=== PATIENT | female | born 1935 | race Caucasian/White ===

== ENCOUNTER 2017-04-28 12:28 | Inpatient (IN) | payer MEDICARE, OTHER ==
[~2017-04-28] VITALS: Ht 170.1 cm; Wt 99.5 kg
--- NOTE | ~2017-04-28 | CON ---
[place], [place] REPORT OF CONSULTATION [id number] #: [id number] ROOM: 509 DOCTOR: CARMEN HATFIELD MD BIRTHDATE: [birth year] DOS: 04/29/2017 HISTORY OF PRESENT ILLNESS: This is a 81-year-old -Hung[place] woman with history of morbid obesity, essential hypertension, COPD and sciatica. She also has depression and anxiety. She smoked for a total of 60 years, but no longer smokes, has never used alcoholic beverages. She also has chronic atrial fibrillation, which was diagnosed about 2 years ago or so. She has never had a stroke, heart attack, heart failure, cancer or kidney problems. She came to the Emergency Department because of increasing shortness of breath over several days prior to this admission. She does not have any chest pain or heaviness, had no palpitations. She does have a cough, which is not productive of any significant moderate sputum. She has not had any swelling of the legs and no orthopnea has been reported. HOME MEDICATIONS: Include Xarelto 20 mg daily, sertraline 25 mg daily, simvastatin 40 daily, metoprolol/Toprol XL 25 mg daily, lisinopril 10 mg daily, hydrochlorothiazide 12.5 mg daily, furosemide 20 mg once a week p.r.n., vitamin D2 and BuSpar. PHYSICAL EXAMINATION: GENERAL: This is a patient who is moderately obese. She is alert. She has oxygen on and is not particularly tachypneic. There is no anemia, thyromegaly. There is no finger clubbing. VITAL SIGNS: Pulse is regular at 72 beats per minute, blood pressure 148/92. NECK: JVP is normal. No carotid bruits are present. HEART: There is a grade 1/6 early peaking systolic murmur over the aortic area and there is no edema at all in the lower extremities. She has mild varicosities. RESPIRATORY: Percussion note is normal. Auscultation revealed diminished breath sounds with crackles on both sides, more so on the left side. ABDOMEN: Supple and nontender. DIAGNOSTIC STUDIES: First ECG on admission done April 28 at 1300 hours showed atrial fibrillation with a ventricular rate of 65 beats per minute and an intraventricular conduction defect with QRS [address] segment depression, T-wave abnormality in 1 and aVL and normal ST segments in chest leads with flat T waves. There was another ECG done about 4 hours later demonstrated a controlled ventricular rate in the presence of atrial fibrillation and [address] segment depression in V4-V6 and 1 and aVL with T-wave inversion and mild ST segment depression V2 and V3. This seemed to suggest underlying myocardial ischemia. Troponin I was 0.054, which is slightly above normal. The second reading was 0.047. Renal function is fine. IMPRESSION: 1. This patient with many risk factors for coronary artery disease, has dyspnea that developed a few days before admission. I do not see any obvious bronchospasm. I think underlying reason may be myocardial ischemia. ECG is [place], [place] REPORT OF CONSULTATION NAME: HARLEEN LILLY UNIT #: [id number] ROOM: 509 DOCTOR: CARMEN HATFIELD MD BIRTHDATE: [birth year] significantly abnormal with acute changes. 2. Atrial fibrillation with controlled ventricular rate. This is chronic and she is anticoagulated. 3. Chronic obstructive pulmonary disease. RECOMMENDATIONS: I am in favor of doing a diagnostic heart cath to look for significant coronary artery disease, but she is somewhat reluctant to have this done. After we explained risks and the benefits to her, she is agreeable to have a Lexiscan Cardiolite study, which will be scheduled for tomorrow morning and Dr. Khanna will do that on my behalf. If that test demonstrates moderate to large ischemic burden, I think diagnostic heart cath and selective coronary angiogram will be recommended to her. I thank you for this consult. CARMEN HATFIELD MD CM:CONSTR:REPORT OF CONSULTATION 1233 04/29/17 7890 interface
--- NOTE | ~2017-04-28 | EKG ---
[place], [place] ELECTROCARDIOGRAM REPORT NAME: HARLEEN LILLY UNIT #: [id number] ROOM: 509 DOCTOR: CARMEN HATFIELD MD BIRTHDATE: [birth year] DOS: 04/28/2017 TIME: 1300 hours. 1. Atrial fibrillation with a ventricular rate of 65 beats per minute. 2. Intraventricular conduction defect is present with QRS of [address] segment depression in 1 and aVL, probably due to conduction abnormality or lateral wall ischemia. 4. No previous tracing is available for comparison. CARMEN HATFIELD MD CM:EKGRPT:ELECTROCARDIOGRAM REPORT 1205 1336 CARMEN HATFIELD MD
--- NOTE | ~2017-04-28 | EKG ---
[place], [place] ELECTROCARDIOGRAM REPORT NAME: HARLEEN LILLY UNIT #: [id number] ROOM: 509 DOCTOR: CARMEN HATFIELD MD BIRTHDATE: [birth year] DOS: 04/28/2017 TIME: 1654 hours. 1. Atrial fibrillation with ventricular rate of 65 beats per minute. 2. Intraventricular conduction defect. 3. A 1-[address] segment depression in I, aVL and V4 to ____ with T-wave inversion is suggestive of anterolateral wall ischemia. 4. When compared with an ECG done at 1300 hours of the same day, ST-T wave changes in chest leads are now quite prominent. CARMEN HATFIELD MD CM:EKGRPT:ELECTROCARDIOGRAM REPORT 1205 1339 CARMEN HATFIELD MD
--- NOTE | ~2017-04-28 | ST ---
[place], [place] EXERCISE STRESS TEST REPORT NAME: HARLEEN LILLY UNIT #: [id number] ROOM: 509 DOCTOR: GERI HOSKINS MD BIRTHDATE: [birth year] DOS: 04/30/2017 Lexiscan portion of Lexiscan Cardiolite. Baseline cardiogram sinus rhythm with atrial fibrillation, controlled ventricular response with Lexiscan, no new EKG changes. Blood pressure and heart rate response was normal. Nuclear images will be reported separately. GERI HOSKINS MD CM:STRESS:EXERCISE STRESS TEST REPORT [id number] GERI HOSKINS MD
[~2017-04-28 12:28] MED LIST: HYDROCODONE BIT1 T11 PO; K-Dur 20MEQ20 MEQ PO; LASIX20 MG PO; LASIX40 MG PO; LISINOPRIL-HYDR1 TA1 PO; METFORMIN HCL500 MG PO; NORVASC5 MG PO; SIMVASTATIN40 MG PO; TOPROL XL25 MG PO; VALSARTAN160 MG PO; XARE20MG PO; ZOLOFT25 MG PO
[2017-04-28 12:56] LABS: BASO % 0.4 % (0.0-1.0); HEMATOCRIT 41.9 % (37.0-47.0); HEMOGLOBIN 13.8 g/dl (12.0-16.0); LYMPH # 0.8 10*3/uL (1.3-4.4); LYMPH % 11.7 % (27.0-41.0); MEAN CORPUSCULAR HGB CONC 32.9 g/dl (33.0-37.0); MEAN PLATELET VOLUME 10.5 fl (9.6-12.3); MONO # 0.5 10*3/uL (0.1-1.0); MONO % 7.7 % (3.0-9.0); NEUT # 5.4 10*3/uL (2.3-7.9); NEUT % 79.8 % (47.0-73.0); PLATELET COUNT AUTOMATED 167 10*3/uL (130-400); RED BLOOD COUNT 4.76 10*6/uL (4.10-5.10); RED CELL DISTRI WIDTH 15.2 % (0-14.5); WHITE BLOOD COUNT 6.7 10*3/uL (4.8-10.8)
[2017-04-28 12:59] VITALS: BP 170/86
[2017-04-28 13:05] LABS: ACT PARTIAL THROMBO TIME 27.1 SECONDS (20.8-31.5); INTERNATIONAL NORM RATIO 1.1 (2.0-3.5)
--- NOTE | 2017-04-28 13:08 | NUR ---
RESPIRATORY COMPLETED BREATHING TX. TITRATED SPO2 TO 2 LITERS. SPO2 REMAINING WNL @ 98%
[2017-04-28 13:12] LABS: ALBUMIN 3.1 gm/dl (3.1-4.5); ALKALINE PHOSPHATASE 86 U/L (45-117); BUN 12 mg/dl (7-24); CHLORIDE 94 mmol/L (98-107); CREATININE 0.84 mg/dL (0.55-1.02); LIPASE 61 U/L (73-393); POTASSIUM 3.3 mmol/L (3.5-5.1); SGOT/AST 22 IU/L (3-35); SGPT/ALT 14 U/L (12-78); SODIUM 130 mmol/L (136-145); TOTAL PROTEIN 7.3 gm/dL (6.4-8.2)
[2017-04-28 13:33] LABS: TROPONIN I 0.048 ng/ml (<0.045)
--- NOTE | 2017-04-28 13:58 | NUR ---
LEVAQUIN 750MG,SOLU-MEDROL 125MG IV PER JOLYNN THEATER PROJECTIONIST.
--- NOTE | 2017-04-28 14:15 | NUR ---
REPORT CALLED. PT STABLE AND READY FOR TRANSPORT TO INPATIENT ROOM.
[2017-04-28 14:18] VITALS: BP 160/82
[2017-04-28 14:40] VITALS: BP 182/92
--- NOTE | 2017-04-28 14:40 | NUR ---
A 81, admitted to 5E, under the services of LISA Antonio DO with a diagnosis of AC RESP FAILURE WITH HYPOXIA, COPD EXACERBATION, PNEUMONITIS. Chief complaint is SOB. Patient arrived via stretcher from ER. Monitor applied. Initial assessment completed. Vital signs taken and recorded. LISA ANTONIO DO notified of admission to the unit. Orders received. See assessment for past medical history, medications and allergies. Patient and/or family oriented to unit. [address] visitation policy reviewed. Clothing/patient valuable form completed. CONNIE SINGLETARY
--- NOTE | 2017-04-28 15:16 | NUR ---
Shift chart check completed.24 HR chart check completed.
[2017-04-28] MEDS ORDERED: PRINIVIL10 MG PO (15:25)
[2017-04-28] MEDS ORDERED: BUSPIRONE10 MG PO (15:26)
[2017-04-28] MEDS ORDERED: HYDROCHLOROTH12.5 M3 PO (15:26)
[2017-04-28] MEDS ORDERED: VITAMIN D22000 UNIT PO (15:27)
--- NOTE | 2017-04-28 15:28 | NUR ---
MEDS VERIFIED WITH [facility]ARM. DR CALHOUN NOTIFIED.
[2017-04-28 16:00] VITALS: BP 172/86
--- NOTE | 2017-04-28 16:36 | NUR ---
I CALLED THE ANSWERING SERVICE FOR DR HATFIELD AND WAS PUT THROUGH TO DR OROPEZA WHO TOLD ME THAT DR HATFIELD WILL BE BACK "THIS EVENING, CALL HIM LATER". WAS UNABLE TO RELAY ANY LABS TO HIM. CALLED THE ANSWERING SERVICE BACK AND THEY WEREN'T AWARE OF ANY CERTAIN TIME THAT DR HATFIELD WILL BE BACK. DR HATFIELD'S CELL PHONE CALLED, HE'S TRAVELING HOME "FROM [place]" AND I WAS ABLE TO REACH HIM. HE INTENDS TO STOP LATER THIS EVENING. ALL LABS/ORDERS WERE RELAYED TO HIM. ORDER FOR REPEAT EKG OBTAINED AND ENTERED.
--- NOTE | 2017-04-28 17:02 | NUR ---
EKG WAS DONE WITH CHANGES FROM THE FIRST( ST FLATTENING AND T-WAVE INVERSION V2-V6). DR HATFIELD NOTIFIED, NO NEW ORDERS.
--- NOTE | 2017-04-28 17:22 | NUR ---
DR CALHOUN NOTIFIED OF TROPONIN ELEVATION AND EKG CHANGES.
--- NOTE | 2017-04-28 19:15 | NUR ---
DR HATFIELD NOT NOTIFIED OF CRITICAL TROPONIN 0.047 BECAUSE IT WAS LOWER THAN THE INITIAL TROPONIN AND DR HATFIELD AWARE OF THAT AND HAD INDICATED HE'S COMING TO SEE THE PT LATER.
[2017-04-28 20:00] VITALS: BP 158/88
--- NOTE | 2017-04-28 20:00 | NUR ---
ASSUMED CARE OF PATIENT. ASSESSMENT COMPLETE. RESTING IN BED. NO VOICED COMPLAINTS. CALL LIGHT IN REACH. WILL CONTINUE TO MONITOR.
--- NOTE | 2017-04-28 21:40 | NUR ---
PT REQUESTING NICOTENE PATCH. CALLED AND SPOKE TO DR QUIROGA. ORDER RECEIVED.
--- NOTE | 2017-04-28 21:52 | NUR ---
MEDICATED WITH PRN RESTORIL FOR HELP TO SLEEP. NICODERM PATCH APPLIED TO LEFT UPPER ARM AT THIS TIME.
[2017-04-29] VITALS: BP 166/81
--- NOTE | 2017-04-29 02:00 | NUR ---
SLEEPING. RESP EASY AND NONLABORED ON 2L NC. NO DISTRESS NOTED. CM INTACT. CALL LIGHT IN REACH. WILL CONTINUE TO MONITOR.
[2017-04-29 06:43] LABS: BASO % 0.2 % (0.0-1.0); HEMATOCRIT 39.7 % (37.0-47.0); HEMOGLOBIN 13.1 g/dl (12.0-16.0); LYMPH # 0.8 10*3/uL (1.3-4.4); LYMPH % 16.7 % (27.0-41.0); MEAN CELL VOLUME 89.6 fl (81.0-99.0); MEAN CORPUSCULAR HGB 29.6 pg (27.0-31.0); MEAN PLATELET VOLUME 10.9 fl (9.6-12.3); MONO # 0.1 10*3/uL (0.1-1.0); NEUT % 80.3 % (47.0-73.0); PLATELET COUNT AUTOMATED 185 10*3/uL (130-400); RED BLOOD COUNT 4.43 10*6/uL (4.10-5.10); RED CELL DISTRI WIDTH 15.2 % (0-14.5); WHITE BLOOD COUNT 4.9 10*3/uL (4.8-10.8)
[2017-04-29 06:51] LABS: ALBUMIN 3.1 gm/dl (3.1-4.5); ALKALINE PHOSPHATASE 78 U/L (45-117); BUN 18 mg/dl (7-24); CHLORIDE 95 mmol/L (98-107); CHOLESTEROL 120 mg/dL (<200); CREATININE 0.93 mg/dL (0.55-1.02); HDL CHOLESTEROL 39 mg/dl (40-60); LDL CHOLESTEROL 66 mg/dL (9-159); PHOSPHOROUS 3.7 mg/dL (2.5-4.9); POTASSIUM 3.5 mmol/L (3.5-5.1); SGOT/AST 25 IU/L (3-35); SGPT/ALT 14 U/L (12-78); SODIUM 134 mmol/L (136-145); TRIGLYCERIDES 75 mg/dl (<150); VLDL CHOLESTEROL 15 mg/dL (6-40)
[2017-04-29 06:56] LABS: THYROID STIM HORMONE (HS) 0.564 uIU/ml (0.358-4.75)
[2017-04-29 08:00] VITALS: BP 140/80; BP 148/92
--- NOTE | 2017-04-29 08:10 | NUR ---
Shift chart check completed.24 HR chart check completed.
--- NOTE | 2017-04-29 08:13 | NUR ---
On assessment patient is alert, oriented, no voiced complaints. Occasional harsh, loose cough, but unable to produce specimen. Container remains at the bedside.
--- NOTE | 2017-04-29 09:00 | NUR ---
Rotary Furnace Tender in to talk to patient. Patient states lives at home with alone. There are four steps in the home. Physician: cristobal agrzon [facility]acy: [facility] Home health services: none Patient's level of ADLs: INDEPENDENT Patient has working utilities: all working DME: none Follow-up physician's appointment after d/c: will be made by hospitalist nurse director upon discharge Does patient want to access PORTAL?: no Discharge plan discussed with patient, patient lives in a trailer alone, she states she gets around fine, she states she will be going back home when able . discussed with her VNA and she was receptive to this, given choice of companies, she chose [employer], program services planner will make referral to [facility] for when patient is medically stable for discharge YANE MANTILLA
[2017-04-29 11:28] LABS: VITAMIN D, 25-HYDROXY 38.6 ng/mL (30-100)
[2017-04-29 12:00] VITALS: BP 151/64
--- NOTE | 2017-04-29 13:03 | NUR ---
DR HATFIELD HAS VISITED. HE RECOMMENDED A HEART CATH TO THE PATIENT BUT SHE WAS RELUCTANT SO HE HAS SCHEDULED A LEXISCAN STRESS TEST FOR TOMORROW MORNING WITH DR LINDER. DR LAGUNAS UPDATED ON THAT PLAN.
[2017-04-29 16:00] VITALS: BP 138/76
--- NOTE | 2017-04-29 16:19 | NUR ---
PHYSICAL THERAPY Physical Therapy Evaluation completed this date. See eval document for further details. Will begin PT intervention to address the impairments of muscle weakness, decreased functional mobility I, and difficulty ambulating. Recommend OT consult for UE weakness and ADL function with OT to request orders per screening process. Recommend SNF [place] [id number] based on chart review and PT eval. Millie Mcfarlane, PT
[2017-04-29 20:00] VITALS: BP 153/57
--- NOTE | 2017-04-29 22:25 | NUR ---
MEDICATED WITH PRN RESTORIL FOR HELP TO SLEEP. WILL MONITOR FOR EFFECTIVENESS
--- NOTE | 2017-04-29 23:14 | NUR ---
ASSUMED CARE FOR PATIENT. ASSESSMENT COMPLETE. NO COMPLAINTS OR COMMENTS AT THIS TIME.
[2017-04-30] VITALS: BP 150/56
--- NOTE | 2017-04-30 06:17 | NUR ---
PT OFF FLOOR TO STRESS TEST AT THIS TIME
[2017-04-30 06:27] LABS: BASO % 0.1 % (0.0-1.0); EOS % 0.1 % (1.0-4.0); HEMATOCRIT 42.6 % (37.0-47.0); HEMOGLOBIN 13.9 g/dl (12.0-16.0); LYMPH # 1.2 10*3/uL (1.3-4.4); LYMPH % 11.8 % (27.0-41.0); MEAN CELL VOLUME 90.4 fl (81.0-99.0); MEAN CORPUSCULAR HGB 29.5 pg (27.0-31.0); MEAN CORPUSCULAR HGB CONC 32.6 g/dl (33.0-37.0); MEAN PLATELET VOLUME 10.8 fl (9.6-12.3); MONO # 0.3 10*3/uL (0.1-1.0); MONO % 2.6 % (3.0-9.0); NEUT # 8.3 10*3/uL (2.3-7.9); NEUT % 84.8 % (47.0-73.0); PLATELET COUNT AUTOMATED 210 10*3/uL (130-400); RED BLOOD COUNT 4.71 10*6/uL (4.10-5.10); RED CELL DISTRI WIDTH 15.3 % (0-14.5); WHITE BLOOD COUNT 9.8 10*3/uL (4.8-10.8)
[2017-04-30 06:44] LABS: CHLORIDE 96 mmol/L (98-107); CREATININE 1.02 mg/dL (0.55-1.02); POTASSIUM 3.5 mmol/L (3.5-5.1); SODIUM 135 mmol/L (136-145)
[2017-04-30 06:47] LABS: BUN 30 mg/dl (7-24)
--- NOTE | 2017-04-30 07:09 | NUR ---
INFORMED CONSENT SIGNED FOR LEXISCAN STRESS TEST WITH DR. HOSKINS. RESTING EKG ATRIAL FIB, SINUS BRADYCARDIA. HR 57, BP 128/76. LUNGS CLEAR, PULSE OX 100% ON 2L/NC. O2 DECREASED TO 1.5L/NC. COMPLETED ONE MINUTE OF LEXISCAN PROTOCOL RECEIVING LEXISCAN 0.4MG OVER 10 SECONDS. OACCASIONAL PVC NOTED WITH NO ST CHANGES. PT HAD NO C/O. LAST RECOVERY HR 58, BP 106/64. WAITING NUCLEAR SCANNING IN STABLE CONDITIONM
[2017-04-30 08:00] VITALS: BP 157/92
--- NOTE | 2017-04-30 08:10 | NUR ---
PT OFF THE FLOOR FOR STRESS TEST.
--- NOTE | 2017-04-30 08:17 | NUR ---
PHYSICAL THERAPY Nursing screen for PT received. Orders for PT present. Yanet Rico,PT
--- NOTE | 2017-04-30 08:21 | NUR ---
PHYSICAL THERAPY Patient was not in room at 8:20 am and the patient care notes says she is having a stress test. NOMI GUERRA DIRECTOR CARDIAC
--- NOTE | 2017-04-30 09:00 | NUR ---
case management visits with patient, patient will be going home when able and have [facility]. program planner will notify home health when patient is medically stable for discharge
--- NOTE | 2017-04-30 09:10 | NUR ---
PT RESTING IN BED. RESP-EASY AND REGULAR. NO C/O A TTHIS TIME. CALL LIGHT IN REACH. SEE SHIFT ASSESSMENT.
--- NOTE | 2017-04-30 10:00 | NUR ---
PHYSICAL THERAPY Patient presented to therapy after just returning from a stress test. Patient was sitting up in bed and agreed to therapy treatment. Patient performed supine to sitting at EOB and sit to stand transfer with SBA to [facility]. Patient is on 2 liters of O2. Patient performed gait with W/W and Close Supervision for 30' x 1 with 2 liters of spO2. Patient then performed seated ther ex at EOB x 20 reps each in all planes of movement to jami. LEs. Patient transfered back to supine in bed and left with call light within reach and bed alarm on. Patient was 1:1 with this BILLBOARD MECHANIC for 20 minutes total. NOMI GUERRA BILLBOARD MECHANIC
--- NOTE | 2017-04-30 10:17 | NUR ---
Patient to be discharged to home with [facility]. received order, faxed clincals for referral.
--- NOTE | 2017-04-30 10:30 | NUR ---
TOLERATED ROUTINE MEDS WITH NO PROBLEM. OXYGEN IN USE. NO C/O AT THIS TIME. CALL LIGHT IN REACH.
[2017-04-30 12:00] VITALS: BP 150/71
--- NOTE | 2017-04-30 12:30 | NUR ---
BSG-151, SEE EMAR. NO C/O AT THIS TIME. OXYGEN IN USE. CALL LIGHT IN REACH.
--- NOTE | 2017-04-30 13:54 | NUR ---
PHYSICAL THERAPY CO-SIGN I approve of the Phyical Therapy notes written above. ZARINA CHAIREZ PT
[2017-04-30 16:00] VITALS: BP 154/89
--- NOTE | 2017-04-30 16:20 | NUR ---
PT RESTING IN BED. OXYGEN IN USE. NO C/O AT THIS TIME. BSG-153, SEE EMAR. CALL LIGHT IN REACH. SEE SHIFT ASSESSMENT.
--- NOTE | 2017-04-30 18:00 | NUR ---
PT RESTING IN BED. RESP-EASY AND REGULAR. TOLERATED ROUTINE MED WITH NO PROBLEM. CALL LIGHT IN REACH.
[2017-04-30 20:00] VITALS: BP 156/74
--- NOTE | 2017-04-30 20:33 | NUR ---
PATIENT RESTING IN BED. STATES SHE FEELS A LOT BETTER NOW AND THAT SHE IS GOING HOME TOMORROW. SHE IS PLEASANT AND COOPERATIVE WITH CARE. SEE ASSESMENT. CALL LIGHT IS IN REACH. WILL MONITOR.
--- NOTE | 2017-04-30 22:26 | NUR ---
MEDICATED WITH PRN RESTORIL ORDERED FOR C/O INSOMNIA
--- NOTE | 2017-04-30 23:15 | NUR ---
EARLIER RESTORIL APPEARES EFFECTIVE. PATIENT SLEEPING, NO SXS OF DISTRESS. RESPIRATIONS EASY/REG. CALL LIGHT IS IN REACH. WILL MONITOR.
[2017-05-01] VITALS: BP 160/65
--- NOTE | 2017-05-01 01:55 | NUR ---
PATIENT SLEEPING ON LEFT SIDE, RESPIRATIONS EASY/REG, NO SXS OF DISTRESS. CALL LIGHT IS IN REACH.
--- NOTE | 2017-05-01 02:27 | NUR ---
24 HOUR CHART CHECK COMPLETE
[2017-05-01 07:29] LABS: BUN 32 mg/dl (7-24); CHLORIDE 98 mmol/L (98-107); CREATININE 1.03 mg/dL (0.55-1.02); POTASSIUM 3.5 mmol/L (3.5-5.1); SODIUM 136 mmol/L (136-145)
[2017-05-01 08:00] VITALS: BP 149/62
--- NOTE | 2017-05-01 08:10 | NUR ---
PT RESTING IN BED WITH HOB ELEVATED. RESP-EASY AND REGULAR. OXYGEN IN USE. NO C/O AT THIS TIME. CALL LIGHT IN REACH. SEE SHIFT ASSESSMENT.
--- NOTE | 2017-05-01 09:00 | NUR ---
case management visits with patient, patient will be going home and [facility] will see her, mission planner will notify [facility] when patient is medically stable for discharge
[2017-05-01 12:00] VITALS: BP 160/48
[2017-05-01] MEDS ORDERED: PREDNISONE10 MG PO (12:48)
[2017-05-01] MEDS ORDERED: ZITHROMAX250 MG PO (12:48)
--- NOTE | 2017-05-01 13:10 | NUR ---
PT ESCORTED OFF FLOOR VIA WHEELCHAIR FOR DISCHARGE WITH FAMILY AT HER SIDE.
--- NOTE | 2017-05-01 13:15 | NUR ---
CALLED DR. HOSKINS AWARE OF DISCHARGE FOLLOW UP IN 4 WEEKS.
[2017-05-01] MEDS ORDERED: NICODERM T (13:25)
--- NOTE | 2017-05-01 13:25 | NUR ---
Discharge instructions reviewed with patient/family. Patient receptive and verbalizes understanding. Follow-up care arranged. Written instructions given to patient/family. HEPLOCK REMOVED, 2X2 APPLIED. MONITOR REMOVED. PT ADVISED TO FOLLOW UP IN [address] HOSKINS. DRISS CORTES
== END 2017-05-01 13:25 | disposition home health service (06) | DRG 189 ==
LOC: ED 12:28 → EDHOLD 13:49 → 5E 13:49
PROVIDERS: Emergency Medicine; Hospitalist; ADMIT Internal Medicine
PROC: 4A02XM4 Measurement of Cardiac Total Activity, External Approach (ICD-10-PCS; principal; 2017-04-30)
PROC: 3E073KZ Introduction of Other Diagnostic Substance into Coronary Artery, Percutaneous Approach (ICD-10-PCS; 2017-04-30)
DX: J96.01 Acute respiratory failure with hypoxia (principal); J18.9 Pneumonia, unspecified organism; E44.0 Moderate protein-calorie malnutrition; I48.2 Chronic atrial fibrillation; J44.0 Chronic obstructive pulmonary disease with (acute) lower respiratory infection; E87.1 Hypo-osmolality and hyponatremia; E66.01 Morbid (severe) obesity due to excess calories; E78.5 Hyperlipidemia, unspecified; J44.1 Chronic obstructive pulmonary disease with (acute) exacerbation; M54.30 Sciatica, unspecified side; F41.9 Anxiety disorder, unspecified; E87.6 Hypokalemia; F32.9 Major depressive disorder, single episode, unspecified; I10 Essential (primary) hypertension; Z71.6 Tobacco abuse counseling; Z72.0 Tobacco use; Z98.42 Cataract extraction status, left eye; Z98.41 Cataract extraction status, right eye; Z90.710 Acquired absence of both cervix and uterus; Z82.49 Family history of ischemic heart disease and other diseases of the circulatory system; Z80.49 Family history of malignant neoplasm of other genital organs; Z88.1 Allergy status to other antibiotic agents; Z88.0 Allergy status to penicillin; Z88.2 Allergy status to sulfonamides; Z79.01 Long term (current) use of anticoagulants; Z68.33 Body mass index [BMI] 33.0-33.9, adult

== ENCOUNTER 2018-04-01 05:37 | Inpatient (IN) | payer MEDICARE, OTHER ==
[2018-04-01] VITALS (7 sets, daily range): BP systolic 114–182; BP diastolic 53–80
[~2018-04-01] VITALS: Ht 170.1 cm; Wt 99.8 kg
--- NOTE | ~2018-04-01 | EKG ---
[place], [place] ELECTROCARDIOGRAM REPORT NAME: HARLEEN LILLY UNIT #: [id number] ROOM: 403 DOCTOR: JONATHAN DRAFT REPORT BIRTHDATE: [birth year] [facility] Test Date: 2018-04-01 Test Time: 05:52:13 Pat Name: HARLEEN LILLY Department: Room: 403 Gender: F Barbecue Cook: : 1935 Requested By: VOLODYMYR MICHAUD Order Number: [id number] Reading MD: Naveen Drake MD Measurements Intervals [place] Rate: 78 P: [place]: QRS: -46 QRSD: 179 T: 130 QT: 492 QTc: 561 Interpretive Statements Atrial fibrillation Frequent PVCs or aberrantly conducted beats Left bundle branch block No previous ECG available for comparison Electronically Signed On 04-01-2018 19:59:11 PDT by Naveen Drake MD CM:EKGRPT:ELECTROCARDIOGRAM REPORT [id number] 58 VOLODYMYR CLINTON DRAFT REPORT VOLODYMYR MICHAUD DO
[~2018-04-01 05:37] MED LIST changes: +BUSPIRONE10 MG PO; +HYDROCHLOROTH12.5 M3 PO; +NICODERM T; +PREDNISONE10 MG PO; +PRINIVIL10 MG PO; +VITAMIN D22000 UNIT PO; +ZITHROMAX250 MG PO
[2018-04-01 05:59] LABS: BASO # 0.1 10*3/uL (0.0-0.1); EOS # 0.4 10*3/uL (0.0-0.4); EOS % 5.2 % (1.0-4.0); HEMOGLOBIN 10.8 g/dl (12.0-16.0); LYMPH # 1.6 10*3/uL (1.3-4.4); LYMPH % 20.5 % (27.0-41.0); MEAN CELL VOLUME 84.1 fl (81.0-99.0); MEAN CORPUSCULAR HGB 25.2 pg (27.0-31.0); MEAN PLATELET VOLUME 10.5 fl (9.6-12.3); MONO # 0.6 10*3/uL (0.1-1.0); MONO % 7.2 % (3.0-9.0); NEUT # 5.2 10*3/uL (2.3-7.9); NEUT % 65.7 % (47.0-73.0); PLATELET COUNT AUTOMATED 239 10*3/uL (130-400); RED BLOOD COUNT 4.28 10*6/uL (4.10-5.10); RED CELL DISTRI WIDTH 18.4 % (0-14.5); WHITE BLOOD COUNT 7.9 10*3/uL (4.8-10.8)
[2018-04-01 06:13] LABS: ACT PARTIAL THROMBO TIME 30.1 SECONDS (20.8-31.5); INTERNATIONAL NORM RATIO 1.3 (2.0-3.5)
[2018-04-01 06:19] LABS: ALBUMIN 3.4 gm/dl (3.1-4.5); CREATININE 1.14 mg/dL (0.55-1.02); POTASSIUM 3.8 mmol/L (3.5-5.1); TOTAL PROTEIN 7.3 gm/dL (6.4-8.2); TROPONIN I 0.02 ng/ml (<0.045)
[2018-04-01] MEDS ORDERED: K-TAB20 MEQ PO (08:45)
[2018-04-02] VITALS: BP 150/55
[2018-04-02 06:21] LABS: BASO # 0.1 10*3/uL (0.0-0.1); BASO % 1.3 % (0.0-1.0); EOS # 0.4 10*3/uL (0.0-0.4); EOS % 6.1 % (1.0-4.0); HEMATOCRIT 34.1 % (37.0-47.0); HEMOGLOBIN 10.5 g/dl (12.0-16.0); LYMPH # 1.3 10*3/uL (1.3-4.4); MEAN CELL VOLUME 82.8 fl (81.0-99.0); MEAN CORPUSCULAR HGB 25.5 pg (27.0-31.0); MEAN CORPUSCULAR HGB CONC 30.8 g/dl (33.0-37.0); MEAN PLATELET VOLUME 10.1 fl (9.6-12.3); MONO # 0.5 10*3/uL (0.1-1.0); MONO % 8.4 % (3.0-9.0); NEUT # 3.8 10*3/uL (2.3-7.9); PLATELET COUNT AUTOMATED 200 10*3/uL (130-400); RED BLOOD COUNT 4.12 10*6/uL (4.10-5.10); RED CELL DISTRI WIDTH 18.4 % (0-14.5); WHITE BLOOD COUNT 6.1 10*3/uL (4.8-10.8)
[2018-04-02 06:38] LABS: CHLORIDE 101 mmol/L (98-107); POTASSIUM 3.5 mmol/L (3.5-5.1); SODIUM 138 mmol/L (136-145)
[2018-04-02 06:53] LABS: ALKALINE PHOSPHATASE 69 U/L (45-117); BUN 21 mg/dl (7-24); CHOLESTEROL 102 mg/dL (<200); CREATININE 1.03 mg/dL (0.55-1.02); FREE T4 1.75 ng/dl (0.76-1.46); HDL CHOLESTEROL 42 mg/dl (40-60); LDL CHOLESTEROL 46 mg/dL (9-159); PHOSPHOROUS 3.7 mg/dL (2.5-4.9); SGOT/AST 16 IU/L (3-35); SGPT/ALT 10 U/L (12-78); TOTAL PROTEIN 6.6 gm/dL (6.4-8.2); TRIGLYCERIDES 69 mg/dl (<150); VLDL CHOLESTEROL 14 mg/dL (6-40)
[2018-04-02 07:39] LABS: VITAMIN D, 25-HYDROXY 43.4 ng/mL (30-100)
[2018-04-02 08:00] VITALS: BP 130/80
[2018-04-02 12:00] VITALS: BP 144/52
[2018-04-02 16:00] VITALS: BP 138/55
[2018-04-02 20:00] VITALS: BP 130/86
[2018-04-03] VITALS: BP 137/58
[2018-04-03 07:24] LABS: BUN 22 mg/dl (7-24); CHLORIDE 100 mmol/L (98-107); CREATININE 1.06 mg/dL (0.55-1.02); POTASSIUM 3.6 mmol/L (3.5-5.1); SODIUM 136 mmol/L (136-145)
[2018-04-03 08:00] VITALS: BP 153/65
[2018-04-03 12:00] VITALS: BP 143/61
== END 2018-04-03 13:33 | disposition home health service (06) | DRG 291 ==
LOC: ED 05:37 → 4E 06:51 → EDHOLD 06:51 → 4E 07:36
PROVIDERS: Internal Medicine Nephrology; Student in an Organized Health Care Education/Training Program
DX: I13.0 Hypertensive heart and chronic kidney disease with heart failure and stage 1 through stage 4 chronic kidney disease, or unspecified chronic kidney disease (principal); J96.01 Acute respiratory failure with hypoxia; I50.31 Acute diastolic (congestive) heart failure; I16.1 Hypertensive emergency; E44.0 Moderate protein-calorie malnutrition; D68.69 Other thrombophilia; Z68.34 Body mass index [BMI] 34.0-34.9, adult; I50.9 Heart failure, unspecified; E55.9 Vitamin D deficiency, unspecified; F17.210 Nicotine dependence, cigarettes, uncomplicated; I48.91 Unspecified atrial fibrillation; N18.3 Chronic kidney disease, stage 3 (moderate); J44.9 Chronic obstructive pulmonary disease, unspecified; F41.9 Anxiety disorder, unspecified; E78.5 Hyperlipidemia, unspecified; E66.9 Obesity, unspecified; Z90.710 Acquired absence of both cervix and uterus; Z98.42 Cataract extraction status, left eye; Z98.41 Cataract extraction status, right eye; Z82.49 Family history of ischemic heart disease and other diseases of the circulatory system; Z80.49 Family history of malignant neoplasm of other genital organs; Z88.0 Allergy status to penicillin; Z88.1 Allergy status to other antibiotic agents; Z79.899 Other long term (current) drug therapy

== ENCOUNTER 2018-11-23 16:42 | Inpatient (IN) | payer MEDICARE ==
[~2018-11-23] VITALS: Ht 170.1 cm; Wt 93.1 kg
--- NOTE | ~2018-11-23 | EKG ---
[place], [place] ELECTROCARDIOGRAM REPORT NAME: HARLEEN LILLY UNIT #: [id number] ROOM: 405 DOCTOR: EPIPHANY DRAFT REPORT BIRTHDATE: [birth year] [facility] Test Date: 2018-11-23 Test Time: 17:21:24 Pat Name: HALREEN LILLY Department: ER-5 Room: 405 Gender: F Fish Cleaner: : 1935 Requested By: JR LEYVA DNP Order Number: [id number] Reading MD: Renata Price MD Measurements Intervals [place] Rate: 67 P: [place]: QRS: -55 QRSD: 178 T: 121 QT: 502 QTc: 530 Interpretive Statements Atrial fibrillation Left bundle-branch block LVH with secondary repolarization abnormality Compared to ECG 04/01/2018 05:52:13 Left ventricular hypertrophy now present Electronically Signed On 11-25-2018 10:22:14 PDT by Renata Price MD CM:EKGRPT:ELECTROCARDIOGRAM REPORT [id number] 1022 JR LEYVA DNP EPIPHANY DRAFT REPORT JR LEYVA DNP
--- NOTE | ~2018-11-23 | CON ---
[place], [place] REPORT OF CONSULTATION NAME: HARLEEN LILLY UNIT #: [id number] ROOM: 405 DOCTOR: GERI HOSKINS MD BIRTHDATE: [birth year] DOS: 11/25/2018 REASON FOR CONSULTATION: Mild shortness of breath and leg swelling. HISTORY OF PRESENT ILLNESS: An 83-year-old. The patient is admitted with a known history of left iliac stent, admitted with increasing shortness of breath. The patient says the leg pain and the swelling increased gradually since last week and this is the first time she has had significant swelling of her lower extremities, pain has improved since last night but doing well from the cardiac point of view and the leg edema significantly improved. PAST MEDICAL HISTORY: Significant for peripheral arterial disease, chronic congestive heart failure, hypertension, COPD, hypercoagulable state, atrial fibrillation. The patient is already on rivaroxaban. PAST SURGICAL HISTORY: Left eye cataract extraction and hysterectomy. SOCIAL HISTORY: Denies any alcohol abuse, heavy tobacco abuse. Current nonsmoker less than 1 pack per day for the last 66 years. ALLERGIES: MULTIPLE WITH PENICILLIN AND AMPICILLIN. HOME MEDICATIONS: Include baby aspirin, Lasix, lisinopril, metoprolol, simvastatin, and rivaroxaban. REVIEW OF SYSTEMS: CONSTITUTIONAL: No fever, no chills. HEENT: No visual deficits or hearing problems. CARDIOVASCULAR: As per HPI. GASTROINTESTINAL: No nausea, no vomiting. GENITOURINARY: No dysuria. EXTREMITIES: Does have peripheral pain. PHYSICAL EXAMINATION: GENERAL: The patient is alert, awake, oriented. HEENT: Unremarkable. NECK: Supple, no JVD. LUNGS: Clear. HEART: Sounds are regular. ABDOMEN: Soft, nontender. EXTREMITIES: Diminished pulsations. NEUROLOGICAL: Stable. EXTREMITIES: Mild edema. The last ejection fraction was normal that was done last year. LABORATORY DATA: Shows hemoglobin 13.2, hematocrit 40.5. Electrolytes are pending. Potassium is 3.1. Cardiac enzymes are all negative. DIAGNOSTIC DATA: Venous Dopplers were negative. Arterial Dopplers inconclusive [place], [place] REPORT OF CONSULTATION NAME: HARLEEN LILLY UNIT #: [id number] ROOM: 405 DOCTOR: GERI HOSKINS MD BIRTHDATE: [birth year] and biphasic flow in the left external iliac and common femoral, SFA, popliteal artery, ankle brachial index was not obtained because of cardiac arrhythmia, so it is a very suboptimal study. If indicated, consideration should be given for a CT angiogram or a bifemoral angiogram, which we can perform. RECOMMENDATIONS: Continue with other medications. Continue IV diuretics. Monitor the heart rate and blood pressure very closely and continue rivaroxaban and we will follow up. GERI HOSKINS MD CM:CONSTR:REPORT OF CONSULTATION 0714 11/25/18 1207 interface
[~2018-11-23 16:42] MED LIST changes: +K-TAB10 MEQ PO; -LASIX40 MG PO; -VITAMIN D22000 UNIT PO; +VITAMIN D32000 UNI1 PO
[2018-11-23 16:44] VITALS: BP 155/60
[2018-11-23 17:17] LABS: BASO # 0.1 10*3/uL (0.0-0.1); BASO % 1.1 % (0.0-1.0); EOS # 0.2 10*3/uL (0.0-0.4); EOS % 3.8 % (1.0-4.0); HEMATOCRIT 36.7 % (37.0-47.0); HEMOGLOBIN 11.6 g/dl (12.0-16.0); LYMPH # 1.1 10*3/uL (1.3-4.4); MEAN CELL VOLUME 89.7 fl (81.0-99.0); MEAN CORPUSCULAR HGB 28.4 pg (27.0-31.0); MEAN CORPUSCULAR HGB CONC 31.6 g/dl (33.0-37.0); MEAN PLATELET VOLUME 9.8 fl (9.6-12.3); MONO # 0.6 10*3/uL (0.1-1.0); NEUT # 4.4 10*3/uL (2.3-7.9); NEUT % 68.8 % (47.0-73.0); PLATELET COUNT AUTOMATED 216 10*3/uL (130-400); RED BLOOD COUNT 4.09 10*6/uL (4.10-5.10); RED CELL DISTRI WIDTH 16.3 % (0-14.5); WHITE BLOOD COUNT 6.4 10*3/uL (4.8-10.8)
[2018-11-23 17:28] LABS: ACT PARTIAL THROMBO TIME 28.3 SECONDS (20.0-32.1); INTERNATIONAL NORM RATIO 1.1 (2.0-3.5)
[2018-11-23 17:39] LABS: ALBUMIN 3.2 gm/dl (3.1-4.5); CREATININE 1.11 mg/dL (0.55-1.02); POTASSIUM 3.6 mmol/L (3.5-5.1); TROPONIN I 0.027 ng/ml (<0.045)
--- NOTE | 2018-11-23 19:53 | NUR ---
Patient asked if she could have something to eat, BEN DAY ARTIST aware and patient notified that she couldn't have anything to eat because her Ultrasound results haven't come back yet. Patient in agreement. Call light within reach.
[2018-11-23 20:56] VITALS: BP 142/60
--- NOTE | 2018-11-23 21:00 | NUR ---
2X FULL LINEN CHANGE DUE TO INCONTINENCE.
[2018-11-23 21:31] VITALS: BP 167/75
[2018-11-23] MEDS ORDERED: ASPIR LOW81 MG PO (21:50)
--- NOTE | 2018-11-23 21:52 | NUR ---
Spoke with Dr. Ramirez regarding home med updated in med rec. Reviewed med pt needs tonight and Dr. Ramirez gave telephone order for order.
--- NOTE | 2018-11-23 22:15 | NUR ---
Pt states that she takes zoloft in the morning, states she had already today. On home med list states PM to the side, pt states that is wrong she takes it in the morning.
--- NOTE | 2018-11-24 00:20 | NUR ---
Pt states that her legs are cramping and painful. States that tylenol given earlier has not helped. Pt states she uses biofreeze at home or maxicool when this happens. I spoke with Dr. Ramirez who states to order for pt. I spoke with Nursing fuel system maintenance supervisor regarding this and Emi states that she cannot obtain this after hours.
--- NOTE | 2018-11-24 00:30 | NUR ---
I notified pt that I spoke with and obtained order for creme but nursing supervisor scouring pads does not have this med available after hours. I offered to rub pt legs with lotion and she said she would try. This was done and pt states she does feel somewhat better.
[2018-11-24] MEDS ORDERED: BIOFREEZE118 ML T (00:43)
[2018-11-24 06:14] LABS: BASO # 0.1 10*3/uL (0.0-0.1); BASO % 0.9 % (0.0-1.0); EOS # 0.2 10*3/uL (0.0-0.4); EOS % 2.3 % (1.0-4.0); HEMATOCRIT 38.4 % (37.0-47.0); HEMOGLOBIN 12.3 g/dl (12.0-16.0); LYMPH # 0.9 10*3/uL (1.3-4.4); LYMPH % 12.4 % (27.0-41.0); MEAN CELL VOLUME 87.7 fl (81.0-99.0); MEAN CORPUSCULAR HGB 28.1 pg (27.0-31.0); MEAN PLATELET VOLUME 10.1 fl (9.6-12.3); MONO # 0.6 10*3/uL (0.1-1.0); MONO % 7.9 % (3.0-9.0); NEUT # 5.7 10*3/uL (2.3-7.9); NEUT % 76.2 % (47.0-73.0); PLATELET COUNT AUTOMATED 227 10*3/uL (130-400); RED BLOOD COUNT 4.38 10*6/uL (4.10-5.10); RED CELL DISTRI WIDTH 16.1 % (0-14.5); WHITE BLOOD COUNT 7.5 10*3/uL (4.8-10.8)
[2018-11-24 06:41] LABS: ALBUMIN 3.2 gm/dl (3.1-4.5); CREATININE 1.07 mg/dL (0.55-1.02); FREE T4 1.83 ng/dl (0.76-1.46); PHOSPHOROUS 2.9 mg/dL (2.5-4.9); POTASSIUM 3.1 mmol/L (3.5-5.1); TOTAL PROTEIN 6.8 gm/dL (6.4-8.2)
[2018-11-24 06:46] LABS: THYROID STIM HORMONE (HS) 2.36 uIU/ml (0.358-4.75)
--- NOTE | 2018-11-24 07:45 | NUR ---
24 HR chart check completed.
--- NOTE | 2018-11-24 07:48 | NUR ---
24 HR chart check completed.
[2018-11-24 07:59] LABS: VITAMIN D, 25-HYDROXY 51.8 ng/mL (30-100)
[2018-11-24 08:00] VITALS: BP 148/54
--- NOTE | 2018-11-24 09:00 | NUR ---
C Wpf Developer in to talk to patient. Patient states lives at home with alone. There are few steps in the home. Physician: ;lianne portillo Pharmacy: [facility] Home health services: none Patient's level of ADLs: MINIMAL ASSIST Patient has working utilities: all working DME: walker Follow-up physician's appointment after d/c: will be made by hospitalist nurse director upon discharge Does patient want to access PORTAL?: no Discharge plan discussed with patient, patient lives at home alone, she states she has a neighbor that helps her if needed, patient states she is independent in ambulation with a walker, she drives, patient stated she would be going home when able, discussed with her VNA and she was receptive to this, given choice of companies, she chose [employer]. will [facility] when patient is medically stable for discharge. YANE MANTILLA
[2018-11-24 12:00] VITALS: BP 125/69
--- NOTE | 2018-11-24 13:07 | NUR ---
DR HATFIELD CONSULTED.
[2018-11-24 16:00] VITALS: BP 156/61
--- NOTE | 2018-11-24 19:00 | NUR ---
PT AWAKE IN BED DURING BEDSIDE SHIFT REPORT. NO C/O VOICED. CALL LIGHT IN REACH.
[2018-11-24 20:00] VITALS: BP 138/56
--- NOTE | 2018-11-24 21:43 | NUR ---
DR. AVALOS NOTIFIED OF PT'S REQUEST FOR SLEEP AID. DR. GA ORDER RESTORIL.
--- NOTE | 2018-11-24 22:20 | NUR ---
PT MEDICATED W/RESTORIL AT THIS TIME TO HELP PROMOTE SLEEP. LIGHTS AND TV TURNED OFF AND CURTAIN PULLED FOR PRIVACY. CALL LIGHT IN REACH.
[2018-11-25] VITALS: BP 129/55
--- NOTE | 2018-11-25 03:36 | NUR ---
24 HR chart check completed.
[2018-11-25 06:17] LABS: BASO # 0.1 10*3/uL (0.0-0.1); BASO % 0.6 % (0.0-1.0); EOS # 0.2 10*3/uL (0.0-0.4); EOS % 2.5 % (1.0-4.0); HEMATOCRIT 40.5 % (37.0-47.0); HEMOGLOBIN 13.2 g/dl (12.0-16.0); LYMPH # 1.1 10*3/uL (1.3-4.4); LYMPH % 13.5 % (27.0-41.0); MEAN CELL VOLUME 86.7 fl (81.0-99.0); MEAN CORPUSCULAR HGB 28.3 pg (27.0-31.0); MEAN CORPUSCULAR HGB CONC 32.6 g/dl (33.0-37.0); MEAN PLATELET VOLUME 10.4 fl (9.6-12.3); MONO # 0.8 10*3/uL (0.1-1.0); MONO % 10.7 % (3.0-9.0); NEUT # 5.7 10*3/uL (2.3-7.9); NEUT % 72.4 % (47.0-73.0); PLATELET COUNT AUTOMATED 210 10*3/uL (130-400); RED BLOOD COUNT 4.67 10*6/uL (4.10-5.10); RED CELL DISTRI WIDTH 15.9 % (0-14.5); WHITE BLOOD COUNT 7.9 10*3/uL (4.8-10.8)
--- NOTE | 2018-11-25 07:22 | NUR ---
24 HR chart check completed.
[2018-11-25 07:23] LABS: ALBUMIN 3.2 gm/dl (3.1-4.5); CHLORIDE 95 mmol/L (98-107); POTASSIUM 3.2 mmol/L (3.5-5.1); SODIUM 134 mmol/L (136-145)
[2018-11-25 07:28] LABS: ALKALINE PHOSPHATASE 79 U/L (45-117); BUN 18 mg/dl (7-24); PHOSPHOROUS 3.2 mg/dL (2.5-4.9); SGOT/AST 20 IU/L (3-35); SGPT/ALT 12 U/L (12-78); TOTAL PROTEIN 6.8 gm/dL (6.4-8.2)
[2018-11-25 08:00] VITALS: BP 130/56
--- NOTE | 2018-11-25 08:58 | NUR ---
PHYSICAL THERAPY Patient evaluated on 4, full evaluation to follow. Continue with PT as per plan of care with fall, LLE PAIN and acute debility precautions. Will require SNF: however, doubt patient willing. IF home, recommend home health RN, PT, OT and aides. PAtient is moderate complexity via chart review, tests and evaluation: [id number]. Thank you for this referral. Yanet Rico,PT
--- NOTE | 2018-11-25 09:00 | NUR ---
case management visits with patient, patient will be going home when able and have [facility], no other needs at this time
[2018-11-25 12:00] VITALS: BP 139/86
[2018-11-25 16:00] VITALS: BP 157/50
--- NOTE | 2018-11-25 16:01 | NUR ---
PHYSICAL THERAPY Patient gives informed consent for treatment. Patient was identified by name and . Patient was supine in bed with head of bed elevated. Patient perofrmed supine to sitting at EOB transfer with MOD A X 1. Patient scooted to EOB with SBA. Patient performed sit to stand transfer with MOD A X 1 and verbal cues for pushing off of bed rail with one hand. Patient stood at Walker for 1 minute EYES OPEN without hands on walker with no LOB. Patient ambulated with Walker and CGA X 1 for 24' x 1 with no NO LOB and verbal cues for head up, upright posture, and longer step length. Patient sit to stand again from EOB with MIN A X 1 and verbal cues for hand placement. Patient stood EYES CLOSED for 1 minute at Walker with hands on walker and NO LOB. Patient 5 Xs sit to stands from EOB in 1 minute 34 seconds total with use of UEs. 3 out of the 5 sit to stands required MIN A X 1. Patient performed seated at EOB bilateral LE ther ex x 15 reps each in all planes of movement for strengthning the LEs in order to improve patient's functional mobility. Patient side-stepped with Walker up to head of bed with CGA X 1. Patient transferred sit to supine in bed with MOD A X 1 and verbal cues for bringing the LEs up over the EOB. Patient was left in supine in bed with head of bed elevated, call light within reach and bed alarm activated. Patient was 1:1 with this TECHNOLOGY APPLICATIONS ENGINEER for 23 minutes total. NOMI GUERRA TECHNOLOGY APPLICATIONS ENGINEER
[2018-11-25 20:00] VITALS: BP 121/35
[2018-11-26] VITALS: BP 93/73
[2018-11-26 07:19] LABS: ALBUMIN 3.2 gm/dl (3.1-4.5); CREATININE 1.14 mg/dL (0.55-1.02); PHOSPHOROUS 3.7 mg/dL (2.5-4.9); POTASSIUM 3.3 mmol/L (3.5-5.1); TOTAL PROTEIN 7.1 gm/dL (6.4-8.2)
--- NOTE | 2018-11-26 09:00 | NUR ---
case management visits with patient, patient will be going home when able and have [facility], no other needs at this time
--- NOTE | 2018-11-26 10:55 | NUR ---
PHYSICAL THERAPY Patient [facility] this [facility]. Patient supine in bed upon arrival. Patient agreed to therapy reporting that she is anxious to return to home. Patient required max A to transfer supine to sitting EOB despite cues for proper technique. Patient reports that she is worried about going back home and trying to tranfer in/out of bed and on/off toilet. Repeated STS completed EOB to walker requiring mod A, cues for technique including scooting to EOB, strong push off, and forward WS. Patient ambualted with walker and min A for safety, slow matias noted with cues for increased step height and lenght to normalize pattern. Gait completed going 40' x2 this date. Patient required mod A to trasnfer sitting EOB back to supine as she was unable to lift and swing LEs into bed. Patient in no distress upon exit. Tx time:21min Radha Mccray, [employer]
[2018-11-26] MEDS ORDERED: KLOR-CON M2020 ME1 PO (12:21)
[2018-11-26] MEDS ORDERED: FUROSEMIDE40 MG PO (12:21)
--- NOTE | 2018-11-26 12:35 | NUR ---
Discharge instructions reviewed with patient/family. Patient receptive and verbalizes understanding. Follow-up care arranged. Written instructions given to patient/family. GUILLERMINA WORLEY
--- NOTE | 2018-11-27 10:52 | NUR ---
PHYSICAL THERAPY CO-SIGN I approve of the Phyical Therapy notes written above. REJI RIBEIRO
--- NOTE | 2018-11-27 11:11 | NUR ---
case management notified [facility] that patient was discharged to home on 11/26/18
--- NOTE | 2018-11-27 12:03 | NUR ---
case management received a call from Gisselle at [facility], she stated her financial person checked on patient's insurance, patient has a new insurance that is not in network with any home health company within 100 miles of [place], case management will notify patient
[2018-12-02] MEDS ORDERED: FLAGYL500 MG PO (15:39)
== END 2018-11-26 14:50 | disposition home or self-care (01) | DRG 291 ==
LOC: ED 16:42 → 4E 20:37 → EDHOLD 20:37 → 4E 21:00
PROVIDERS: Internal Medicine; Nurse Practitioner Family; Student in an Organized Health Care Education/Training Program; ADMIT Emergency Medicine
DX: I13.0 Hypertensive heart and chronic kidney disease with heart failure and stage 1 through stage 4 chronic kidney disease, or unspecified chronic kidney disease (principal); I50.33 Acute on chronic diastolic (congestive) heart failure; E87.1 Hypo-osmolality and hyponatremia; E44.0 Moderate protein-calorie malnutrition; M79.604 Pain in right leg; M79.605 Pain in left leg; E87.6 Hypokalemia; E83.42 Hypomagnesemia; E87.8 Other disorders of electrolyte and fluid balance, not elsewhere classified; E78.5 Hyperlipidemia, unspecified; J44.9 Chronic obstructive pulmonary disease, unspecified; I49.9 Cardiac arrhythmia, unspecified; E53.8 Deficiency of other specified B group vitamins; E11.65 Type 2 diabetes mellitus with hyperglycemia; N18.3 Chronic kidney disease, stage 3 (moderate); E11.51 Type 2 diabetes mellitus with diabetic peripheral angiopathy without gangrene; F41.9 Anxiety disorder, unspecified; E11.22 Type 2 diabetes mellitus with diabetic chronic kidney disease; I48.2 Chronic atrial fibrillation; E66.9 Obesity, unspecified; Z90.710 Acquired absence of both cervix and uterus; Z98.42 Cataract extraction status, left eye; Z98.41 Cataract extraction status, right eye; Z82.49 Family history of ischemic heart disease and other diseases of the circulatory system; Z80.8 Family history of malignant neoplasm of other organs or systems; Z88.2 Allergy status to sulfonamides; Z88.6 Allergy status to analgesic agent; Z88.1 Allergy status to other antibiotic agents; Z88.0 Allergy status to penicillin; Z79.82 Long term (current) use of aspirin; Z79.899 Other long term (current) drug therapy; Z87.891 Personal history of nicotine dependence; Z86.73 Personal history of transient ischemic attack (TIA), and cerebral infarction without residual deficits; Z68.33 Body mass index [BMI] 33.0-33.9, adult

== ENCOUNTER 2018-12-28 07:29 | Emergency (ER) | payer MEDICARE ==
[~2018-12-28] VITALS: Ht 170.1 cm; Wt 100.7 kg
[~2018-12-28 07:29] MED LIST changes: +ASPIR LOW81 MG PO; +BIOFREEZE118 ML T; +FLAGYL500 MG PO; +FUROSEMIDE40 MG PO; +KLOR-CON M2020 ME1 PO
[2018-12-28 07:58] LABS: BILIRUBIN NEGATIVE (NEGATIVE); BLOOD 3+ (NEGATIVE); CLARITY CLOUDY (CLEAR); GLUCOSE TRACE (NEGATIVE); KETONE 1+ (NEGATIVE); LEUKO ESTERASE 2+ (NEGATIVE); NITRITE POSITIVE (NEGATIVE); SPECIFIC GRAVITY 1.015 (1.005-1.030)
[2018-12-28 08:17] LABS: BACTERIA 4+; COLOR RED (YELLOW); RBC TNTC rbc/hpf (0-2)
[2018-12-28 08:39] LABS: BASO # 0.1 10*3/uL (0.0-0.1); BASO % 0.8 % (0.0-1.0); EOS # 0.2 10*3/uL (0.0-0.4); EOS % 3.1 % (1.0-4.0); HEMATOCRIT 35.2 % (37.0-47.0); HEMOGLOBIN 11.4 g/dl (12.0-16.0); LYMPH % 14.3 % (27.0-41.0); MEAN CORPUSCULAR HGB 29.2 pg (27.0-31.0); MEAN CORPUSCULAR HGB CONC 32.4 g/dl (33.0-37.0); MEAN PLATELET VOLUME 10.3 fl (9.6-12.3); MONO # 0.6 10*3/uL (0.1-1.0); MONO % 8.8 % (3.0-9.0); NEUT # 5.1 10*3/uL (2.3-7.9); NEUT % 72.7 % (47.0-73.0); PLATELET COUNT AUTOMATED 211 10*3/uL (130-400); RED BLOOD COUNT 3.91 10*6/uL (4.10-5.10); RED CELL DISTRI WIDTH 15.3 % (0-14.5); WHITE BLOOD COUNT 7.1 10*3/uL (4.8-10.8)
[2018-12-28 08:53] LABS: ACT PARTIAL THROMBO TIME 30.5 SECONDS (20.0-32.1); INTERNATIONAL NORM RATIO 1.2 (2.0-3.5)
[2018-12-28 08:54] LABS: ALBUMIN 3.1 gm/dl (3.1-4.5); CREATININE 1.32 mg/dL (0.55-1.02); POTASSIUM 3.3 mmol/L (3.5-5.1); TOTAL PROTEIN 6.7 gm/dL (6.4-8.2)
[2018-12-28] MEDS ORDERED: DOXYCYCLINE100 M3 PO (09:17)
[2018-12-28] MEDS ORDERED: PYRIDIUM100 MG PO (09:17)
== END 2018-12-28 10:00 | disposition home or self-care (01) ==
LOC: ED 07:29
PROVIDERS: Internal Medicine
DX: N39.0 Urinary tract infection, site not specified (principal); I13.0 Hypertensive heart and chronic kidney disease with heart failure and stage 1 through stage 4 chronic kidney disease, or unspecified chronic kidney disease; N18.3 Chronic kidney disease, stage 3 (moderate); I50.9 Heart failure, unspecified; I48.91 Unspecified atrial fibrillation; E78.5 Hyperlipidemia, unspecified; E66.9 Obesity, unspecified; J44.9 Chronic obstructive pulmonary disease, unspecified; Z88.2 Allergy status to sulfonamides; Z88.1 Allergy status to other antibiotic agents; Z88.0 Allergy status to penicillin; Z88.6 Allergy status to analgesic agent; Z79.899 Other long term (current) drug therapy; Z79.82 Long term (current) use of aspirin; Z68.34 Body mass index [BMI] 34.0-34.9, adult; Z87.891 Personal history of nicotine dependence

== ENCOUNTER → 2019-04-27 | Outpatient (CLI) | payer MEDICARE ==
[~2019-04-27] MED LIST changes: +DOXYCYCLINE100 M3 PO; +PYRIDIUM100 MG PO
[2019-04-27 17:13] LABS: BASO # 0.1 10*3/uL (0.0-0.1); BASO % 1.1 % (0.0-1.0); EOS # 0.4 10*3/uL (0.0-0.4); EOS % 5.5 % (1.0-4.0); HEMATOCRIT 38.4 % (37.0-47.0); HEMOGLOBIN 11.8 g/dl (12.0-16.0); LYMPH # 1.3 10*3/uL (1.3-4.4); LYMPH % 19.3 % (27.0-41.0); MEAN CELL VOLUME 90.8 fl (81.0-99.0); MEAN CORPUSCULAR HGB 27.9 pg (27.0-31.0); MEAN CORPUSCULAR HGB CONC 30.7 g/dl (33.0-37.0); MEAN PLATELET VOLUME 10.1 fl (9.6-12.3); MONO # 0.5 10*3/uL (0.1-1.0); MONO % 7.7 % (3.0-9.0); NEUT # 4.3 10*3/uL (2.3-7.9); NEUT % 66.2 % (47.0-73.0); PLATELET COUNT AUTOMATED 215 10*3/uL (130-400); RED BLOOD COUNT 4.23 10*6/uL (4.10-5.10); RED CELL DISTRI WIDTH 16.4 % (0-14.5); WHITE BLOOD COUNT 6.5 10*3/uL (4.8-10.8)
[2019-04-27 17:27] LABS: ALBUMIN 3.2 gm/dl (3.1-4.5); CREATININE 1.2 mg/dL (0.55-1.02); POTASSIUM 4.4 mmol/L (3.5-5.1); TOTAL PROTEIN 7.2 gm/dL (6.4-8.2); URIC ACID 4.5 mg/dL (2.6-6.0)
[2019-04-27 17:33] LABS: THYROID STIM HORMONE (HS) 2.92 uIU/ml (0.358-4.75)
== END | disposition home or self-care (01) ==
LOC: LAB 15:40
PROVIDERS: Internal Medicine Cardiovascular Disease
DX: E78.5 Hyperlipidemia, unspecified (principal); J44.9 Chronic obstructive pulmonary disease, unspecified; I48.20 Chronic atrial fibrillation, unspecified; I11.9 Hypertensive heart disease without heart failure

== ENCOUNTER 2021-03-30 13:25 | Inpatient (IN) | payer MEDICARE ==
[~2021-03-30] VITALS: Ht 170.2 cm; Wt 98.0 kg
[~2021-03-30 13:25] MED LIST changes: +ALLOPURINOL100 MG PO; +DICLOFENAC SOD100 G1 T; +LASIX40 MG PO; +LISINOPRIL5 MG PO; +POTASSIUM CHLO20 ME3 PO; +XARELTO10 MG PO
[2021-03-30 13:33] VITALS: BP 162/70
[2021-03-30 13:57] LABS: BASO # 0.1 10*3/uL (0.0-0.1); BASO % 0.9 % (0.0-1.0); EOS # 0.3 10*3/uL (0.0-0.4); HEMATOCRIT 38.3 % (37.0-47.0); LYMPH # 1.2 10*3/uL (1.3-4.4); LYMPH % 19.2 % (27.0-41.0); MEAN CELL VOLUME 92.1 fl (81.0-99.0); MEAN CORPUSCULAR HGB 28.6 pg (27.0-31.0); MEAN CORPUSCULAR HGB CONC 31.1 g/dl (33.0-37.0); MEAN PLATELET VOLUME 10.1 fl (9.6-12.3); MONO # 0.5 10*3/uL (0.1-1.0); NEUT # 4.2 10*3/uL (2.3-7.9); NEUT % 66.6 % (47.0-73.0); PLATELET COUNT AUTOMATED 174 10*3/uL (130-400); RED BLOOD COUNT 4.16 10*6/uL (4.10-5.10); RED CELL DISTRI WIDTH 18.7 % (0-14.5); WHITE BLOOD COUNT 6.4 10*3/uL (4.8-10.8)
[2021-03-30 14:14] LABS: ALBUMIN 3.1 gm/dl (3.1-4.5); CREATININE 1.22 mg/dL (0.55-1.02); POTASSIUM 4.4 mmol/L (3.5-5.1); TOTAL PROTEIN 7.4 gm/dL (6.4-8.2); TROPONIN I 0.021 ng/ml (<0.045)
[2021-03-30 14:19] LABS: INTERNATIONAL NORM RATIO 1.2 (2.0-3.5)
[2021-03-30] MEDS ORDERED: ROPINIROLE HYDRO1 MG PO (15:18)
[2021-03-30] MEDS ORDERED: MIRTAZAPINE15 M2 PO (15:21)
[2021-03-30] MEDS ORDERED: LIPITOR40 MG PO (15:21)
[2021-03-30 16:20] VITALS: BP 158/76
[2021-03-30] MEDS ORDERED: SERTRALINE HYDR50 MG PO (17:57)
[2021-03-30] MEDS ORDERED: ASPIRIN ADULT L81 M1 PO (18:04)
[2021-03-30 18:15] VITALS: BP 149/64
[2021-03-30 20:00] VITALS: BP 123/53
[2021-03-31] VITALS: BP 160/55
[2021-03-31 06:16] LABS: HEMATOCRIT 36.5 % (37.0-47.0); LYMPH # 0.6 10*3/uL (1.3-4.4); LYMPH % 14.7 % (27.0-41.0); MEAN CELL VOLUME 92.2 fl (81.0-99.0); MEAN CORPUSCULAR HGB 28.8 pg (27.0-31.0); MEAN CORPUSCULAR HGB CONC 31.2 g/dl (33.0-37.0); MONO % 0.9 % (3.0-9.0); NEUT # 3.7 10*3/uL (2.3-7.9); NEUT % 84.2 % (47.0-73.0); PLATELET COUNT AUTOMATED 154 10*3/uL (130-400); RED BLOOD COUNT 3.96 10*6/uL (4.10-5.10); RED CELL DISTRI WIDTH 18.5 % (0-14.5); WHITE BLOOD COUNT 4.3 10*3/uL (4.8-10.8)
[2021-03-31 08:00] VITALS: BP 140/55
[2021-03-31 12:00] VITALS: BP 118/48
[2021-03-31 16:00] VITALS: BP 117/46
[2021-03-31 20:00] VITALS: BP 108/30
[2021-04-01 05:47] LABS: CREATININE 1.3 mg/dL (0.55-1.02)
[2021-04-01 06:05] LABS: HEMATOCRIT 34.4 % (37.0-47.0); MEAN CELL VOLUME 92.2 fl (81.0-99.0); MEAN CORPUSCULAR HGB 28.4 pg (27.0-31.0); MEAN CORPUSCULAR HGB CONC 30.8 g/dl (33.0-37.0); MEAN PLATELET VOLUME 10.4 fl (9.6-12.3); PLATELET COUNT AUTOMATED 156 10*3/uL (130-400); RED BLOOD COUNT 3.73 10*6/uL (4.10-5.10); RED CELL DISTRI WIDTH 18.5 % (0-14.5); WHITE BLOOD COUNT 8.2 10*3/uL (4.8-10.8)
[2021-04-01 06:17] LABS: POTASSIUM 5.5 mmol/L (3.5-5.1)
[2021-04-01 07:15] LABS: OVALOCYTES FEW; PLATELET SUFFICIENCY NORMAL (NORMAL); TOTAL CELLS COUNTED 100 #CELLS
[2021-04-01 07:16] LABS: POLYCHROMASIA SLIGHT
[2021-04-01 08:00] VITALS: BP 149/62
[2021-04-01 12:00] VITALS: BP 133/53
[2021-04-01 16:00] VITALS: BP 112/42
[2021-04-01 20:00] VITALS: BP 132/58
[2021-04-02] VITALS: BP 113/65
[2021-04-02 06:27] LABS: BASO % 0.1 % (0.0-1.0); HEMATOCRIT 35.8 % (37.0-47.0); LYMPH # 0.6 10*3/uL (1.3-4.4); LYMPH % 6.9 % (27.0-41.0); MEAN CELL VOLUME 94.2 fl (81.0-99.0); MEAN CORPUSCULAR HGB 29.2 pg (27.0-31.0); MEAN PLATELET VOLUME 10.1 fl (9.6-12.3); MONO # 0.2 10*3/uL (0.1-1.0); MONO % 2.7 % (3.0-9.0); NEUT # 7.8 10*3/uL (2.3-7.9); PLATELET COUNT AUTOMATED 158 10*3/uL (130-400); RED CELL DISTRI WIDTH 18.6 % (0-14.5); WHITE BLOOD COUNT 8.7 10*3/uL (4.8-10.8)
[2021-04-02 06:38] LABS: CREATININE 1.2 mg/dL (0.55-1.02); POTASSIUM 5.3 mmol/L (3.5-5.1)
[2021-04-02 08:00] VITALS: BP 158/64
[2021-04-02 12:00] VITALS: BP 139/55
[2021-04-02 16:00] VITALS: BP 139/85
[2021-04-02 20:00] VITALS: BP 146/63
[2021-04-03] VITALS: BP 146/71
[2021-04-03 06:16] LABS: CREATININE 1.2 mg/dL (0.55-1.02); POTASSIUM 5.3 mmol/L (3.5-5.1)
[2021-04-03 08:00] VITALS: BP 154/58
[2021-04-03] MEDS ORDERED: ROPINIROLE HYDRO1 MG PO (09:06)
[2021-04-03] MEDS ORDERED: PREDNISONE5 MG PO (09:06)
[2021-04-03] MEDS ORDERED: TOPROL XL25 MG PO (09:07)
[2021-04-03 11:49] VITALS: BP 143/55
== END 2021-04-03 15:46 | disposition home health service (06) | DRG 189 ==
LOC: ED 13:25 → EDHOLD 16:50 → 4E 16:50
PROVIDERS: Emergency Medicine; ADMIT Internal Medicine; ATTEND Internal Medicine
DX: J96.01 Acute respiratory failure with hypoxia (principal); I13.0 Hypertensive heart and chronic kidney disease with heart failure and stage 1 through stage 4 chronic kidney disease, or unspecified chronic kidney disease; J44.1 Chronic obstructive pulmonary disease with (acute) exacerbation; I48.21 Permanent atrial fibrillation; N17.9 Acute kidney failure, unspecified; I50.32 Chronic diastolic (congestive) heart failure; E44.0 Moderate protein-calorie malnutrition; E87.5 Hyperkalemia; N18.32 Chronic kidney disease, stage 3b; G25.81 Restless legs syndrome; Z95.0 Presence of cardiac pacemaker; Z79.01 Long term (current) use of anticoagulants; Z51.5 Encounter for palliative care; Z88.2 Allergy status to sulfonamides; Z88.0 Allergy status to penicillin; Z88.6 Allergy status to analgesic agent; Z88.8 Allergy status to other drugs, medicaments and biological substances; Z88.1 Allergy status to other antibiotic agents; Z90.710 Acquired absence of both cervix and uterus; Z82.49 Family history of ischemic heart disease and other diseases of the circulatory system; Z80.49 Family history of malignant neoplasm of other genital organs; Z68.33 Body mass index [BMI] 33.0-33.9, adult

== ENCOUNTER 2021-06-15 13:46 | Inpatient (IN) | payer MEDICARE, MEDICAID ==
[~2021-06-15] VITALS: Ht 195.5 cm; Wt 93.1 kg
[~2021-06-15 13:46] MED LIST changes: +ASPIRIN ADULT L81 M1 PO; +LIPITOR40 MG PO; +MIRTAZAPINE15 M2 PO; +PREDNISONE5 MG PO; +ROPINIROLE HYDRO1 MG PO; +SERTRALINE HYDR50 MG PO
[2021-06-15 13:48] VITALS: BP 115/43
[2021-06-15 14:15] LABS: ABG BASE EXCESS 9.8 mmol/L (-2.0-2.0); ARTERIAL BLOOD GAS PH 7.335 (7.35-7.45); ARTERIAL BLOOD GAS PO2 83.9 (80-90)
[2021-06-15 14:22] VITALS: BP 136/57
[2021-06-15 14:32] LABS: BASO % 0.5 % (0.0-1.0); EOS % 0.2 % (1.0-4.0); LYMPH # 0.6 10*3/uL (1.3-4.4); MEAN CELL VOLUME 99.4 fl (81.0-99.0); MEAN CORPUSCULAR HGB 28.9 pg (27.0-31.0); MEAN CORPUSCULAR HGB CONC 29.1 g/dl (33.0-37.0); MEAN PLATELET VOLUME 9.7 fl (9.6-12.3); MONO # 0.3 10*3/uL (0.1-1.0); MONO % 5.8 % (3.0-9.0); NEUT # 4.7 10*3/uL (2.3-7.9); PLATELET COUNT AUTOMATED 210 10*3/uL (130-400); RED BLOOD COUNT 3.42 10*6/uL (4.10-5.10); RED CELL DISTRI WIDTH 17.8 % (0-14.5); WHITE BLOOD COUNT 5.7 10*3/uL (4.8-10.8)
[2021-06-15 14:49] LABS: ALBUMIN 2.5 gm/dl (3.1-4.5); CREATININE 1.61 mg/dL (0.55-1.02); POTASSIUM 5.1 mmol/L (3.5-5.1); TOTAL PROTEIN 6.5 gm/dL (6.4-8.2)
[2021-06-15] MEDS ORDERED: ACETAMINOPHEN650 M5 PO (15:36)
[2021-06-15] MEDS ORDERED: AMMONIUM LACTA385 GM T (15:39)
[2021-06-15] MEDS ORDERED: ACETAZOLAMIDE250 MG PO (15:39)
[2021-06-15] MEDS ORDERED: GENTLE LAXATIVE10 MG R (15:40)
[2021-06-15] MEDS ORDERED: VITAMIN D325 MCG PO (15:40)
[2021-06-15] MEDS ORDERED: LASIX20 MG PO (15:41)
[2021-06-15] MEDS ORDERED: LASIX10 MG/ML IV (15:41)
[2021-06-15] MEDS ORDERED: HYDROXYZINE HCL50 MG PO (15:42)
[2021-06-15] MEDS ORDERED: Ipratropium Brom3 ML INH (15:42)
[2021-06-15] MEDS ORDERED: Zaroxolyn,Diul2.5 MG PO (15:43)
[2021-06-15] MEDS ORDERED: MULTIPLE VITAM1 EAC1 PO (15:43)
[2021-06-15] MEDS ORDERED: POTASSIUM CHLO10 ME4 PO (15:44)
[2021-06-15] MEDS ORDERED: PROAIR HFA8.5 GM INH (15:44)
[2021-06-15] MEDS ORDERED: REMERON30 M1 PO (15:44)
[2021-06-15 15:45] VITALS: BP 128/57
[2021-06-15 16:00] VITALS: BP 130/93
[2021-06-15 18:19] VITALS: BP 149/60
[2021-06-15 20:15] VITALS: BP 163/85
[2021-06-16] VITALS (12 sets, daily range): BP systolic 116–137; BP diastolic 42–89
[2021-06-16 07:32] LABS: BASO # 0.1 10*3/uL (0.0-0.1); BASO % 0.7 % (0.0-1.0); EOS # 0.3 10*3/uL (0.0-0.4); EOS % 3.8 % (1.0-4.0); HEMATOCRIT 33.4 % (37.0-47.0); LYMPH # 0.8 10*3/uL (1.3-4.4); LYMPH % 10.9 % (27.0-41.0); MEAN CELL VOLUME 96.8 fl (81.0-99.0); MEAN CORPUSCULAR HGB 29.3 pg (27.0-31.0); MEAN CORPUSCULAR HGB CONC 30.2 g/dl (33.0-37.0); MONO # 0.7 10*3/uL (0.1-1.0); MONO % 9.7 % (3.0-9.0); NEUT # 5.5 10*3/uL (2.3-7.9); NEUT % 74.6 % (47.0-73.0); PLATELET COUNT AUTOMATED 229 10*3/uL (130-400); RED BLOOD COUNT 3.45 10*6/uL (4.10-5.10); RED CELL DISTRI WIDTH 17.8 % (0-14.5); WHITE BLOOD COUNT 7.3 10*3/uL (4.8-10.8)
[2021-06-16 07:51] LABS: ALBUMIN 2.6 gm/dl (3.1-4.5); CREATININE 1.44 mg/dL (0.55-1.02); POTASSIUM 4.2 mmol/L (3.5-5.1); TOTAL PROTEIN 6.7 gm/dL (6.4-8.2)
[2021-06-16 16:56] LABS: ARTERIAL BLOOD GAS PH 7.399 (7.35-7.45)
[2021-06-17 06:49] LABS: BASO # 0.1 10*3/uL (0.0-0.1); BASO % 0.9 % (0.0-1.0); EOS # 0.3 10*3/uL (0.0-0.4); EOS % 3.8 % (1.0-4.0); HEMATOCRIT 32.9 % (37.0-47.0); LYMPH # 1.1 10*3/uL (1.3-4.4); LYMPH % 17.3 % (27.0-41.0); MEAN CELL VOLUME 96.2 fl (81.0-99.0); MEAN CORPUSCULAR HGB 28.9 pg (27.0-31.0); MEAN CORPUSCULAR HGB CONC 30.1 g/dl (33.0-37.0); MEAN PLATELET VOLUME 9.7 fl (9.6-12.3); MONO # 0.6 10*3/uL (0.1-1.0); MONO % 9.8 % (3.0-9.0); NEUT # 4.4 10*3/uL (2.3-7.9); NEUT % 67.9 % (47.0-73.0); PLATELET COUNT AUTOMATED 207 10*3/uL (130-400); RED BLOOD COUNT 3.42 10*6/uL (4.10-5.10); WHITE BLOOD COUNT 6.5 10*3/uL (4.8-10.8)
[2021-06-17 07:15] LABS: CREATININE 1.51 mg/dL (0.55-1.02); POTASSIUM 3.7 mmol/L (3.5-5.1)
[2021-06-17 08:00] VITALS: BP 146/45
[2021-06-17 12:00] VITALS: BP 100/58
[2021-06-17 16:00] VITALS: BP 114/64
[2021-06-17 20:00] VITALS: BP 134/73
[2021-06-18] VITALS: BP 144/60
[2021-06-18 06:54] LABS: CREATININE 1.27 mg/dL (0.55-1.02); POTASSIUM 3.1 mmol/L (3.5-5.1)
[2021-06-18 08:00] VITALS: BP 112/35
[2021-06-18 12:00] VITALS: BP 123/54
[2021-06-18 16:00] VITALS: BP 120/82
[2021-06-18 20:00] VITALS: BP 117/55
[2021-06-19] VITALS: BP 136/78; BP 140/94
[2021-06-19 06:43] LABS: CREATININE 1.2 mg/dL (0.55-1.02); POTASSIUM 3.5 mmol/L (3.5-5.1)
[2021-06-19 09:02] VITALS: BP 126/55
[2021-06-19 12:03] VITALS: BP 125/51
[2021-06-19 15:21] VITALS: BP 115/60
[2021-06-19 20:00] VITALS: BP 131/64
[2021-06-20] VITALS: BP 112/81
[2021-06-20 08:00] VITALS: BP 138/54
[2021-06-20 12:00] VITALS: BP 115/58
[2021-06-20 15:45] VITALS: BP 134/70
[2021-06-20 16:00] VITALS: BP 123/70
[2021-06-20 21:03] VITALS: BP 136/49
[2021-06-21 00:42] VITALS: BP 138/47
[2021-06-21 06:50] LABS: CREATININE 1.29 mg/dL (0.55-1.02); POTASSIUM 3.5 mmol/L (3.5-5.1)
[2021-06-21 06:56] LABS: BASO # 0.1 10*3/uL (0.0-0.1); BASO % 0.8 % (0.0-1.0); EOS # 0.5 10*3/uL (0.0-0.4); EOS % 8.3 % (1.0-4.0); HEMATOCRIT 35.7 % (37.0-47.0); LYMPH # 1.3 10*3/uL (1.3-4.4); LYMPH % 21.4 % (27.0-41.0); MEAN CELL VOLUME 95.7 fl (81.0-99.0); MEAN CORPUSCULAR HGB CONC 30.3 g/dl (33.0-37.0); MONO # 0.7 10*3/uL (0.1-1.0); MONO % 11.8 % (3.0-9.0); NEUT # 3.6 10*3/uL (2.3-7.9); NEUT % 57.5 % (47.0-73.0); PLATELET COUNT AUTOMATED 204 10*3/uL (130-400); RED BLOOD COUNT 3.73 10*6/uL (4.10-5.10); RED CELL DISTRI WIDTH 17.2 % (0-14.5); WHITE BLOOD COUNT 6.2 10*3/uL (4.8-10.8)
[2021-06-21 08:00] VITALS: BP 147/67
[2021-06-21 12:00] VITALS: BP 143/52
[2021-06-21 16:36] VITALS: BP 125/50
[2021-06-21 20:16] VITALS: BP 134/49
[2021-06-21 23:54] VITALS: BP 148/63
[2021-06-22 06:45] LABS: BASO % 0.7 % (0.0-1.0); EOS # 0.6 10*3/uL (0.0-0.4); EOS % 9.2 % (1.0-4.0); HEMATOCRIT 34.8 % (37.0-47.0); LYMPH # 1.2 10*3/uL (1.3-4.4); LYMPH % 20.5 % (27.0-41.0); MEAN CELL VOLUME 93.5 fl (81.0-99.0); MEAN PLATELET VOLUME 9.7 fl (9.6-12.3); MONO # 0.8 10*3/uL (0.1-1.0); MONO % 13.1 % (3.0-9.0); NEUT # 3.4 10*3/uL (2.3-7.9); NEUT % 56.3 % (47.0-73.0); PLATELET COUNT AUTOMATED 192 10*3/uL (130-400); RED BLOOD COUNT 3.72 10*6/uL (4.10-5.10); RED CELL DISTRI WIDTH 16.9 % (0-14.5)
[2021-06-22 07:01] LABS: CREATININE 1.24 mg/dL (0.55-1.02)
[2021-06-22 08:00] VITALS: BP 137/68
[2021-06-22 12:00] VITALS: BP 137/68
== END 2021-06-22 13:30 | DRG 291 ==
LOC: ED 13:46 → EDHOLD 16:13 → 5E 16:13
PROVIDERS: Internal Medicine; Internal Medicine Critical Care Medicine; Student in an Organized Health Care Education/Training Program; ADMIT Internal Medicine; ATTEND Internal Medicine
PROC: 5A09357 Assistance with Respiratory Ventilation, Less than 24 Consecutive Hours, Continuous Positive Airway Pressure (ICD-10-PCS; principal; 2021-06-15)
PROC: 5A09357 Assistance with Respiratory Ventilation, Less than 24 Consecutive Hours, Continuous Positive Airway Pressure (ICD-10-PCS; 2021-06-16)
PROC: 5A09357 Assistance with Respiratory Ventilation, Less than 24 Consecutive Hours, Continuous Positive Airway Pressure (ICD-10-PCS; 2021-06-21)
DX: I13.0 Hypertensive heart and chronic kidney disease with heart failure and stage 1 through stage 4 chronic kidney disease, or unspecified chronic kidney disease (principal); I50.33 Acute on chronic diastolic (congestive) heart failure; J96.21 Acute and chronic respiratory failure with hypoxia; J96.22 Acute and chronic respiratory failure with hypercapnia; E87.2 Acidosis; R65.10 Systemic inflammatory response syndrome (SIRS) of non-infectious origin without acute organ dysfunction; E44.0 Moderate protein-calorie malnutrition; I48.21 Permanent atrial fibrillation; E87.3 Alkalosis; J98.11 Atelectasis; D53.9 Nutritional anemia, unspecified; Z20.822 Contact with and (suspected) exposure to COVID-19; N18.32 Chronic kidney disease, stage 3b; E66.01 Morbid (severe) obesity due to excess calories; G25.81 Restless legs syndrome; F41.1 Generalized anxiety disorder; R62.7 Adult failure to thrive; J43.9 Emphysema, unspecified; E87.5 Hyperkalemia; Z68.26 Body mass index [BMI] 26.0-26.9, adult; Z88.0 Allergy status to penicillin; Z88.2 Allergy status to sulfonamides; Z88.1 Allergy status to other antibiotic agents; Z90.710 Acquired absence of both cervix and uterus; Z82.49 Family history of ischemic heart disease and other diseases of the circulatory system; Z95.0 Presence of cardiac pacemaker; Z79.1 Long term (current) use of non-steroidal anti-inflammatories (NSAID); Z79.51 Long term (current) use of inhaled steroids; Z79.899 Other long term (current) drug therapy

== ENCOUNTER 2021-12-23 20:28 | Emergency (ER) | payer MEDICARE ==
[~2021-12-23 20:28] MED LIST changes: +ACETAMINOPHEN650 M5 PO; +ACETAZOLAMIDE250 MG PO; +AMMONIUM LACTA385 GM T; +GENTLE LAXATIVE10 MG R; +HYDROXYZINE HCL50 MG PO; +Ipratropium Brom3 ML INH; +LASIX10 MG/ML IV; +MULTIPLE VITAM1 EAC1 PO; +POTASSIUM CHLO10 ME4 PO; +PROAIR HFA8.5 GM INH; +REMERON30 M1 PO; +VITAMIN D325 MCG PO; +Zaroxolyn,Diul2.5 MG PO
[2021-12-23 20:47] LABS: BILIRUBIN Negative (Negative); BLOOD Negative (Negative); CLARITY Clear (Clear); COLOR Yellow (Yellow); GLUCOSE Negative (Negative); KETONE Negative (Negative); LEUKO ESTERASE Negative (Negative); NITRITE Negative (Negative)
[2021-12-23 20:57] LABS: BACTERIA TRACE; EPITHELIAL CELLS 0-2
[2021-12-23] MEDS ORDERED: CLARITIN10 MG PO (21:04)
[2021-12-23] MEDS ORDERED: LASIX40 MG PO (21:04)
[2021-12-23] MEDS ORDERED: ZOLOFT50 MG PO (21:05)
[2021-12-23] MEDS ORDERED: MIRAPEX1 MG PO (21:05)
[2021-12-23 21:11] LABS: HEMATOCRIT 33.7 % (37.0-47.0); MEAN CELL VOLUME 93.4 fl (81.0-99.0); MEAN CORPUSCULAR HGB 28.8 pg (27.0-31.0); MEAN CORPUSCULAR HGB CONC 30.9 g/dl (33.0-37.0); MEAN PLATELET VOLUME 10.6 fl (9.6-12.3); NUCLEATED RED BLOOD CELL 0.1 10*3/uL (0.0-0.0); NUCLEATED RED BLOOD CELL 1.4 % (0.0-0.0); PLATELET COUNT AUTOMATED 141 10*3/uL (130-400); RED BLOOD COUNT 3.61 10*6/uL (4.10-5.10); RED CELL DISTRI WIDTH 15.9 % (0-14.5); WHITE BLOOD COUNT 8.3 10*3/uL (4.8-10.8)
[2021-12-23 21:14] LABS: MANUAL DIFF REFLEX YES
[2021-12-23 21:26] LABS: CREATININE 1.34 mg/dL (0.55-1.02); TOTAL PROTEIN 7.1 gm/dL (6.4-8.2)
[2021-12-23 21:43] LABS: ACANTHOCYTES FEW; BURR CELLS MODERATE; PLATELET SUFFICIENCY NORMAL (NORMAL); POLYCHROMASIA SLIGHT; TOTAL CELLS COUNTED 100 #CELLS
[2021-12-23 21:44] LABS: TARGET CELLS FEW
== END 2021-12-24 03:00 ==
LOC: ED 20:28
PROVIDERS: Internal Medicine
DX: D64.9 Anemia, unspecified (principal); E44.1 Mild protein-calorie malnutrition; E87.8 Other disorders of electrolyte and fluid balance, not elsewhere classified; I13.0 Hypertensive heart and chronic kidney disease with heart failure and stage 1 through stage 4 chronic kidney disease, or unspecified chronic kidney disease; N18.32 Chronic kidney disease, stage 3b; Z88.0 Allergy status to penicillin; Z88.1 Allergy status to other antibiotic agents; Z88.2 Allergy status to sulfonamides; Z88.8 Allergy status to other drugs, medicaments and biological substances; Z79.899 Other long term (current) drug therapy; Z90.710 Acquired absence of both cervix and uterus; Z98.890 Other specified postprocedural states; Z90.89 Acquired absence of other organs; Z87.891 Personal history of nicotine dependence